=== PATIENT | female | born 1955 | race Caucasian/White ===

== ENCOUNTER 2018-08-18 16:19 | Emergency (ER) | payer OTHER ==
[~2018-08-18] VITALS: Ht 162.6 cm; Wt 59.0 kg
[2018-08-18] MEDS ORDERED: HYDR1TAB94 PO (17:40)
== END 2018-08-18 18:20 | disposition home or self-care (01) ==
LOC: ER 16:19
DX: M25.511 Pain in right shoulder (principal)
CPT/HCPCS: 73030; 99283-25

== ENCOUNTER 2020-04-23 12:37 | Emergency (ER) | payer MEDICARE, OTHER ==
[~2020-04-23] VITALS: Ht 162.6 cm; Wt 68.0 kg
[~2020-04-23 12:37] MED LIST: HYDR1TAB94 PO
[2020-04-23 13:39] LABS: BASOPHILS ABSOLUTE AUTO 0.05 K/mm3 (0.00-0.23); BASOPHILS PERCENT AUTO 0 % (0-2); EOSINOPHILS PERCENT AUTO 0 % (0-6); Hematocrit 48.2 % (33.0-51.0); Hemoglobin 16.3 g/dL (11.5-16.0); IMMATURE GRAN ABSOLUTE AUTO 0.07 K/mm3 (0.00-0.10); IMMATURE GRAN PERCENT AUTO 0 % (0-1); LYMPHOCYTES ABSOLUTE AUTO 1.08 K/mm3 (0.84-5.20); LYMPHOCYTES PERCENT AUTO 6 % (21-46); MONOCYTES ABSOLUTE AUTO 0.78 K/mm3 (0.16-1.47); MONOCYTES PERCENT AUTO 4 % (4-13); Mean Corpuscular HGB 29.5 pg (26.0-34.0); Mean Corpuscular HGB Conc 33.8 g/dL (31.5-36.5); Mean Corpuscular Volume 87 fL (80-100); Mean Platelet Volume 10.1 fL (9.1-12.4); NEUTROPHILS ABSOLUTE AUTO 17.05 K/mm3 (1.96-9.15); NEUTROPHILS PERCENT AUTO 90 % (41-73); Platelet Count 289 K/mm3 (150-400); RDW Coefficient Variation 12.3 % (11.7-14.2); RDW Standard Deviation 39.3 fL (35.1-46.3); Red Blood Cell Count 5.53 M/mm3 (3.80-5.20); White Blood Cell Count 19.03 K/mm3 (4.00-11.30)
[2020-04-23 14:04] LABS: Alanine Aminotransfer (ALT/SGP 31 U/L (12-78); Albumin, Blood 3.9 g/dL (3.4-5.0); Albumin/Globulin Ratio 0.9 (0.8-1.8); Alk Phos 66 U/L (50-136); Anion Gap 9 mmol/L (6-16); Aspartate Aminotrans (AST/SGOT 24 U/L (12-37); Bilirubin, Total 1.2 mg/dL (0.1-1.0); Blood Urea Nitrogen 21 mg/dL (8-24); Bun/Creatinine Ratio 33.7 (12.0-20.0); CO2, Blood 23 mmol/L (21-32); Calcium, Blood 9.1 mg/dL (8.5-10.1); Chloride, Blood 102 mmol/L (98-108); Creatinine, Blood 0.62 mg/dL (0.40-1.00); Globulin, Blood 4.3 g/dL (2.2-4.0); Glomerular Filtration Rate >60 (60-); Glucose, Blood 281 mg/dL (70-99); Potassium, Blood 3.6 mmol/L (3.5-5.5); Sodium, Blood 134 mmol/L (136-145); Total Protein, Blood 8.2 g/dL (6.4-8.2)
[2020-04-23] MEDS ORDERED: AMOCLA875 PO (16:34)
== END 2020-04-23 17:58 | disposition home or self-care (01) ==
LOC: ER 12:37
PROVIDERS: Physician Assistant
DX: K51.00 Ulcerative (chronic) pancolitis without complications (principal); K76.0 Fatty (change of) liver, not elsewhere classified
CPT/HCPCS: 36415; 74177; 80053; 85025; 86850; 86900; 86901; 93005; 93010; 96365-59; 96367; 96375; 99284-25; J0696; J2405; J2543; J7030; Q9967

== ENCOUNTER 2021-08-05 09:46 | Emergency (ER) | payer MEDICARE, OTHER ==
[~2021-08-05] VITALS: Ht 162.6 cm; Wt 65.8 kg
[~2021-08-05 09:46] MED LIST changes: +AMOCLA875 PO
[2021-08-05] MEDS ORDERED: CYCL10 PO (11:03)
[2021-08-05] MEDS ORDERED: Norco 5-325 Ta1 EACH PO (11:03)
== END 2021-08-05 11:27 | disposition home or self-care (01) ==
LOC: ER 09:46
DX: M54.41 Lumbago with sciatica, right side (principal)
CPT/HCPCS: 96372; 99283-25; J1885

== ENCOUNTER 2024-03-09 20:08 | Inpatient (IN) | payer OTHER ==
[~2024-03-09] VITALS: Ht 162.6 cm; Wt 72.2 kg
[~2024-03-09 20:08] MED LIST changes: +CYCL10 PO; +Norco 5-325 Ta1 EACH PO
[2024-03-09 21:31] LABS: Albumin/Globulin Ratio 1.1 (0.8-1.8); Bilirubin, Total 0.5 mg/dL (0.1-1.0); Bun/Creatinine Ratio 14.9 (12.0-20.0); Calcium, Blood 9.4 mg/dL (8.5-10.1); Creatinine, Blood 0.8 mg/dL (0.40-1.00); Globulin, Blood 3.6 g/dL (2.2-4.0); Potassium, Blood 3.9 mmol/L (3.5-5.5); Total Protein, Blood 7.6 g/dL (6.4-8.2)
[2024-03-09 21:48] LABS: BASOPHILS ABSOLUTE AUTO 0.14 K/mm3 (0.00-0.23); BASOPHILS PERCENT AUTO 1 % (0-2); EOSINOPHILS ABSOLUTE AUTO 0.11 K/mm3 (0.00-0.68); EOSINOPHILS PERCENT AUTO 1 % (0-6); Hematocrit 42.1 % (33.0-51.0); Hemoglobin 14.1 g/dL (11.5-16.0); IMMATURE GRAN ABSOLUTE AUTO 0.03 K/mm3 (0.00-0.10); IMMATURE GRAN PERCENT AUTO 0 % (0-1); LYMPHOCYTES PERCENT AUTO 15 % (21-46); MONOCYTES ABSOLUTE AUTO 0.36 K/mm3 (0.16-1.47); MONOCYTES PERCENT AUTO 3 % (4-13); Mean Corpuscular HGB 29.7 pg (26.0-34.0); Mean Corpuscular HGB Conc 33.5 g/dL (31.5-36.5); Mean Corpuscular Volume 89 fL (80-100); Mean Platelet Volume 10.9 fL (9.1-12.4); NEUTROPHILS ABSOLUTE AUTO 8.53 K/mm3 (1.96-9.15); NEUTROPHILS PERCENT AUTO 79 % (41-73); Platelet Count 282 K/mm3 (150-400); RDW Coefficient Variation 12.4 % (11.7-14.2); RDW Standard Deviation 40.2 fL (35.1-46.3); Red Blood Cell Count 4.74 M/mm3 (3.80-5.20); White Blood Cell Count 10.77 K/mm3 (4.00-11.30)
[2024-03-09] MEDS ORDERED: Clopidogrel Bisulfate 300 MG Cap ONE (22:06)
[2024-03-09] MEDS ORDERED: Heparin Sodium 1000 Units/ML 10ML MDV ONE (22:25)
[2024-03-09] MEDS ORDERED: Verapamil HCL 2.5 MG/ML 2ML Injection ONE (22:25)
[2024-03-09] MEDS ORDERED: Nitroglycerin 2 MG/20 ML BTL ONE (22:26)
[2024-03-09] MEDS ORDERED: NS 250 ML IV ONE (22:26)
[2024-03-09] MEDS ORDERED: NS 1,000 ML IV ONE ×2 (22:26→22:31)
[2024-03-09] MEDS ORDERED: METOPROLOL SUCC25 MG PO (22:28)
[2024-03-09] MEDS ORDERED: Atropine Sulfate 0.1 MG/ML 10ML SYR ONE (22:32)
[2024-03-09] MEDS ORDERED: Phenylephrine HCl 100 MCG/ML-NS 10MLSYR (1MG/10ML) ONE (22:32)
[2024-03-09] MEDS ORDERED: FentaNYL Citrate 50 MCG/ML 2 ML Injection ONE (22:32)
[2024-03-09] MEDS ORDERED: Midazolam HCl 1MG / ML 2ML Vial ONE (22:33)
[2024-03-09] MEDS ORDERED: Tirofiban HCL Monohydrate 3.75 MG/15 ML Vial ONE (22:36)
[2024-03-09 23:20] LABS: International Normalized Ratio 1.06; Prothrombin Time Results 11.3 Sec (9.7-11.5)
[2024-03-09] MEDS ORDERED: NS 1,000 ML IV SCH (23:35)
[2024-03-09 23:56] VITALS: BP 137/60
[2024-03-10] VITALS (46 sets, daily range): BP systolic 114–198; BP diastolic 47–116
--- NOTE | 2024-03-10 01:04 | NUR ---
ASSUMPTION OF CARE/TRANSFER TO ICU PT ARRIVED TO UNIT AT APPROXIMATELY 2342. PT TO ICU ROOM VIA ICU BED. PT ALERT AND ORIENTED X4, ANSWERS QUESTIONS APPROPRIATLEY, FOLLOWS DIRECTION WHEN PROMPTED AND IS ABLE TO MAKE HER NEEDS KNOWN. PT MOVES EXTREMITIES EQUALLY BILATERALLY. PT DENIES PAIN AT THIS TIME. HR 40-70'S SINUS WITH PVC'S, SBP 130-160'S, PT DENIES CP/PRESSURE. TR BAND IN PLACE TO RIGHT RADIAL, SITE CLEAN, NO OOZING NOTED. PT ON 2LPM VIA NC ON ARRIVAL TO UNIT, TITRATED TO RA, OXYGEN SATURATION >92%. ABDOMEN SOFT, BOWEL TONES ACTIVE THROUGHOUT. PIV IN PLACE TO RAC AND LAC, NS INFUSING AT 200MLS/HR. PT SPOKE WITH , THIS RN ALSO SPOKE WITH PT'S BRANDI TO UPDATE HIM. BED IN LOWEST POSITION, CALL LIGHT WITHIN REACH, CARE CONTINUES.
[2024-03-10] MEDS ORDERED: FLU VACC TS2024-25(6MOS UP)/PF 45 MCG/0.5 ML SYRINGE IM ONE (01:10)
[2024-03-10] MEDS ORDERED: Magnesium Hydroxide Conc 10 ML UDC PO PRN (01:10)
[2024-03-10] MEDS ORDERED: Ondansetron HCl 2 MG / ML 2ML Vial IV PRN (01:10)
[2024-03-10] MEDS ORDERED: FentaNYL Citrate 50 MCG/ML 2 ML Injection IV PRN (01:15)
[2024-03-10] MEDS ORDERED: Labetalol HCL 100 MG TAB PO SCH (04:20)
--- NOTE | 2024-03-10 04:23 | NUR ---
PT UPDATE THIS RN TO PT ROOM TO ASSESS TR BAD AND ACCESS SITE. MINIMAL OOZING NOTED TO TR BAND, HEMATOMA FORMATION NOTED ABOVE TR BAND. PRESSURE APPLIED, CHARGE NURSE CALLED TO PRISCILA PICHARDO ASSESS. SECOND TR BAND PLACED ABOVE ORIGINAL TR BAD WITH 5MLS OF AIR ADDED. PT ALSO HYPERTENSIVE, SBP 160-200'S, PT DENIES CP/PRESSURE. CALL PLACED TO DR. PADILLA TO INFORM HIM OF THIS. ORDERS RECEIVED FOR LABETALOL, INSTRUCTED TO LEAVE BOTH TR BANDS IN PLACE UNTIL 0600, THEN START REMOVING AIR FROM THE DISTAL TR BAND FIRST. CARE CONTINUES.
[2024-03-10 04:42] LABS: CHOL/HDL RATIO 3.5; Cholesterol 215 mg/dL (50-200); HDL Cholesterol 62 mg/dL (>39); LDL/HDL RATIO 2.2; Low Density Lipoprotein Chol 137 mg/dL (0-110); Triglycerides 79 mg/dL (30-160); Very Low Density Lipoprot Chol 15 mg/dL (6-32)
[2024-03-10] MEDS ORDERED: HydrALAZINE HCl 20 MG / ML 1ML Vial IV PRN (05:55)
[2024-03-10] MEDS ORDERED: Insulin Human Lispro 100 Units/ML 3ML Syringe SC SCH (07:30)
[2024-03-10] MEDS ORDERED: Carvedilol 6.25 MG Tab PO SCH (08:00)
[2024-03-10] MEDS ORDERED: Aspirin 81 MG Chew PO SCH (09:00)
[2024-03-10] MEDS ORDERED: Clopidogrel Bisulfate 75 MG Tab PO SCH (09:00)
[2024-03-10] MEDS ORDERED: Enoxaparin 40 MG/0.4 ML SYR SC SCH (09:00)
[2024-03-10] MEDS ORDERED: Lisinopril 10 MG Tab PO SCH (09:00)
[2024-03-10] MEDS ORDERED: Lisinopril 20 MG Tab PO SCH (13:00)
[2024-03-10] MEDS ORDERED: Nitroglycerin 0.4 MG SUBL SL ONE (15:08)
[2024-03-10] MEDS ORDERED: Aspirin 81 MG Chew PO ONE (15:08)
[2024-03-10] MEDS ORDERED: Heparin Sodium,Porcine 5,000 UNIT/0.5 ML SDV SC ONE (15:08)
--- NOTE | 2024-03-10 15:31 | NUR ---
THIS RN CALLED FOR REPORT. AWAITING PATIENT TO TRANSFER OVER.
--- NOTE | 2024-03-10 16:44 | NUR ---
UPDATE TELEMETRY NOTIFIED OF PT CALIN, HR LOW 38. DOES NOT SUSTAIN. PT ASYMPTOMATIC. CALL PLACED TO MD BENITEZ TO NOTIFY.
[2024-03-10 17:45] LABS: Bun/Creatinine Ratio 18.9 (12.0-20.0); Creatinine, Blood 0.85 mg/dL (0.40-1.00); Magnesium, Blood 2.1 mg/dL (1.6-2.4); Potassium, Blood 3.8 mmol/L (3.5-5.5)
[2024-03-10] MEDS ORDERED: Atorvastatin 40 MG Tab PO SCH (21:00)
[2024-03-11] VITALS: BP 154/66
[2024-03-11 04:00] VITALS: BP 145/71
[2024-03-11 04:53] LABS: Bun/Creatinine Ratio 21.7 (12.0-20.0); Calcium, Blood 9.2 mg/dL (8.5-10.1); Creatinine, Blood 0.87 mg/dL (0.40-1.00); Potassium, Blood 3.7 mmol/L (3.5-5.5)
--- NOTE | 2024-03-11 06:14 | NUR ---
SHIFT SUMMARY PT ALERT AND ORIENTED X4, SBP 140-150S, AFEBRILE, SB -SR 50-60S MOST OF NIGHT WITH NOTED BRADYCARDIA 35-38 X3 DIFFERENT OCCASIONS, RESOLVED WITHOUT INTERVENTION AND PT ASYMPTOMATIC, RESTING WITH EYES CLOSED, RESP EVEN AND UNLABORED ON RA, PIV TO RIGHT AC AND LEFT AC PATENT AND CLAMPED,RIGHT RADIAL INSERTION SITE FROM HEAD SAMPLER REMAINS BRUISED AND FIRM, HEMATOMA AREA MARKED AND UNCHANGED FROM BEGINNING OF SHIFT, PT DENIES NEEDS OR C/O CHEST PAIN, SOB OR PAIN, SIDE RAILS UP X2 CALL LIGHT IN REACH
[2024-03-11 07:41] VITALS: BP 155/72
[2024-03-11] MEDS ORDERED: Potassium Chloride 20 MEQ TabCR PO SCH (09:00)
[2024-03-11 11:41] VITALS: BP 139/68
[2024-03-11] MEDS ORDERED: ASPI81CH PO (13:16)
[2024-03-11] MEDS ORDERED: ATOR40TA PO (13:16)
[2024-03-11] MEDS ORDERED: CLOP75 PO (13:19)
[2024-03-11] MEDS ORDERED: LABE100 PO (13:20)
[2024-03-11] MEDS ORDERED: LISI20 PO (13:23)
[2024-03-11] MEDS ORDERED: METF500 PO (13:24)
[2024-03-11] MEDS ORDERED: NITR.4SL SL (13:25)
--- NOTE | 2024-03-11 15:34 | NUR ---
DISCHARGE SUMMARY PT A&OX4. VSS. DENIES PAIN. IVS REMOVED. TELEMETRY REMOVED. DISHCARGE INSTRUCTIONS REVIEWED WITH PT AND PT'S , FARZANEH. DISCHARGE MEDICATIONS REVIEWED WITH PT AND PT'S . MEDICATIONS FAXED TO [facility] PER PT REQUEST. PT WHEELED OUT PRIVATE VEHICLE WITH AND BELONGINGS.
== END 2024-03-11 14:43 | disposition home or self-care (01) | DRG 322 ==
LOC: ER 20:08 → ICUE 20:09 → PCU 03-10 15:33
PROVIDERS: Internal Medicine; Student in an Organized Health Care Education/Training Program; ADMIT Internal Medicine Interventional Cardiology
PROC: 027034Z Dilation of Coronary Artery, One Artery with Drug-eluting Intraluminal Device, Percutaneous Approach (ICD-10-PCS; principal; 2024-03-09)
PROC: B2111ZZ Fluoroscopy of Multiple Coronary Arteries using Low Osmolar Contrast (ICD-10-PCS; 2024-03-09)
DX: I21.19 ST elevation (STEMI) myocardial infarction involving other coronary artery of inferior wall (principal); I10 Essential (primary) hypertension; E11.9 Type 2 diabetes mellitus without complications; E78.5 Hyperlipidemia, unspecified; I25.10 Atherosclerotic heart disease of native coronary artery without angina pectoris
CPT/HCPCS: 36415; 71046; 76937; 80048; 80053; 80061; 82947; 83690; 83735; 84484; 85025; 85347; 85520; 85610; 85730; 93005; 93010; 93306; 93454; 96372; 96374; 99152; 99153; 99285-25; A9270; C1725; C1769; C1874; C1887; C1894; C9606; G0378; J0360; J0461; J1644; J1650; J2250; J2371; J3010; J3246; J7030; J7050; Q9967